=== PATIENT | male | born 1990 | race Caucasian/White ===

== ENCOUNTER 2021-04-18 08:45 | Outpatient (CLI) | payer OTHER, SELFPAY ==
[2021-04-18 09:10] VITALS: BP 145/67; PULSE 68; RESP 20; TEMP 36.9; O2SAT 95
[2021-04-18 09:35] VITALS: BP 124/71; PULSE 73; RESP 20; TEMP 36.3; O2SAT 95
--- NOTE | 2021-04-18 09:41 | XR_ITS ---
PROCEDURE: XR KUB CLINICAL INDICATION: IRON DEFICIENCY,ANEMIA,CROHNS DISEASE Possible foreign body COMPARISON: No exams were available for comparison FINDINGS: Nonspecific bowel gas pattern. There gas-filled loops of colon noted mildly distended in the splenic flexure region. Gas is present in the rectum. SENIOR MAINFRAME PROGRAMMER ANALYST shunt is present with the tip in the right upper quadrant. 13 mm gallstone. No colonic radiopaque foreign body is identified. CT may provide better evaluation if clinically warranted. IMPRESSION: Nonspecific bowel gas pattern without obvious radiopaque foreign body. Cholelithiasis Dictated by: Tony Garcia MD 04/18/2021 10:08 Tony Garcia MD in [place] 04/18/2021 10:08
== END 2021-04-18 09:40 | disposition home or self-care (01) ==
LOC: INF 08:47
PROVIDERS: PCP Internal Medicine; Visit Provider Internal Medicine Gastroenterology
DX: D50.0 Iron deficiency anemia secondary to blood loss (chronic) (principal)
CPT/HCPCS: 74018; 96365; Q0138

== ENCOUNTER 2021-04-21 12:57 | Outpatient (CLI) | payer OTHER, SELFPAY ==
[2021-04-21 13:25] VITALS: BP 120/61; PULSE 65; RESP 17; TEMP 36.3; O2SAT 98
[2021-04-21 14:09] VITALS: BP 122/26; PULSE 68; RESP 17; TEMP 36.4; O2SAT 99
== END 2021-04-21 14:11 | disposition home or self-care (01) ==
LOC: INF 13:00
PROVIDERS: PCP Internal Medicine; Visit Provider Internal Medicine Gastroenterology
DX: D50.0 Iron deficiency anemia secondary to blood loss (chronic) (principal)
CPT/HCPCS: 96365; Q0138

== ENCOUNTER → 2021-05-24 09:48 | Outpatient (CLI) | payer OTHER, SELFPAY | PROVIDERS: Visit Provider Internal Medicine Gastroenterology | DX: Z20.822 Contact with and (suspected) exposure to COVID-19 (principal) | CPT/HCPCS: C9803; U0003; U0005 ==

== ENCOUNTER 2021-05-27 09:39 | Day surgery (SDC) | payer OTHER, SELFPAY ==
[2021-05-20 16:27] VITALS: BMI 29.0
[2021-05-27 10:17] VITALS: BP 127/58; PULSE 64; RESP 18; TEMP 36.4; O2SAT 100
--- NOTE | 2021-05-27 11:31 | HMH.PROC ---
[facility] Procedure Note Procedure Note:: Colonoscopy Procedure Report: Colonoscopy with cold biopsies Endoscopist: Cassius Schroeder II, MD Referring physician: Александр Rucker M.D. Date of Procedure: May 27, 2021 Equipment: Olympus 190 variable stiffness pediatric colonoscope Sedation: MAC sedation Indication: Mr. Roa is a 31-year-old gentleman who was diagnosed with Crohn's disease. He presented with iron deficiency anemia. He had an upper endoscopy and colonoscopy in January 2020. He did have parenteral iron infusions and was given Pentasa 2 capsules by mouth 4 times daily. In 2018, he did have 2 episodes of near syncope and was diagnosed with iron deficiency anemia. He required 4 units of PRBCs. He has remained iron deficient. His C-reactive protein was 8.3. His celiac serologies were negative. His fecal Hemoccult testing was positive. His PillCam/video capsule enteroscopy failed to make it to the colon in the 8-hour study so it was nondiagnostic. His labs from December 2020 revealed ferritin 3, iron saturation 7% and total iron 30 with TIBC 404. His hemoglobin was 12.2. 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 The patient had not been using NSAIDs. Procedure: Prior to the procedure, a history and physical exam was performed, and patient's medications and allergies were reviewed. The risks, benefits and alternatives of the sedation and procedure were discussed with the patient. All questions were answered and informed consent was obtained. The patient was brought to the procedure room. Patient identification and proposed procedure were verified by the physician and the nurse. The patient was placed in a left lateral decubitus position and the scope was passed under direct vision. Throughout the procedure, the patient's blood pressure, pulse, and oxygen saturations were monitored continuously. The colonoscopy was accomplished without difficulty. The patient tolerated the procedure well. Findings: On digital rectal examination there was normal rectal tone. There were no external hemorrhoids. The colonoscope was introduced through the anal canal to the rectum and advanced to the cecum. The ileocecal valve and appendiceal orifice were identified. The ileocecal valve was very deformed in appearance with some mucosal edema at the valve. The scope was advanced approximately 20 cm into the ileum. There was marked aphthous ulceration, erosion and evidence of moderate to marked Crohn's disease of the small intestine (i.e. Crohn's ileitis). There was some penetration but no obvious fistulous. There was some minor stenosis. Multiple biopsies were obtained. The scope was then withdrawn into the colon. The remaining cecum, ascending, transverse, descending, sigmoid and rectum were grossly normal. There was moderate colonic tortuosity/redundancy. There were no other colonic mucosal abnormalities identified. Upon retroflexion within the rectum there were grade 1-2 internal hemorrhoids.The preparation was excellent throughout with [place] Preparation Score of 9. The cecal time was 12 minutes. Impression: 1. Moderate to severe Crohn's disease of the ileum/small intestine (i.e. Crohn's ileitis) 2. Moderate colonic redundancy 3. Grade 1-2 internal hemorrhoids Plan: The patient's iron deficiency anemia is clearly related to moderate to severe Crohn's ileitis. The patient is relatively asymptomatic other than the iron deficiency anemia. He has no diarrhea, abdominal pain or hematochezia. Despite being asymptomatic, the natural history of her disease course would dictate continuous and progressive active disease with the majority of patients requiring surgical intervention. The patient does have greater than 50% probability of surgery within the next 5 to 10 years. Cer
[2021-05-27 11:36] VITALS: BP 100/53; PULSE 75; RESP 18; TEMP 36.2; O2SAT 96
[2021-05-27 11:46] VITALS: BP 102/51; PULSE 55; RESP 18; TEMP 36.2; O2SAT 97
[2021-05-27 11:56] VITALS: BP 98/52; PULSE 49; RESP 18; TEMP 36.2; O2SAT 98
--- NOTE | 2021-05-27 11:56 | HMH.ANESCL ---
[facility] Anesthesia Checklist - Patient Identification Patient Identification: Arm Band - Structural Data Admitted From: Home Planned Operative Procedure/s: COLONOSCOPY Consent for Planned Operative Procedure(s) Verified: Yes Verified Documents: Surgical Consent - NPO Status Verified Time NPO: 04:00 - Chart Verification Results Verified: None - Cardiovascular Assessment Heart Sounds: S1 & S2 Pulse Rhythm: Irregular - Airway Assessment Dentition: Good Dentition - Neurological Assessment Level of Consciousness: Awake, Alert, Appropriate Hx Seizures: No - Anesthesia Plan Anesthesia Risk discussed: Yes ASA Class: II Anesthesia Type: General [facility] History I have reviewed the patient's past medical history: Yes Medical History: Denies:: Cancer, Diabetes Mellitus Type 1, Diabetes Mellitus Type 2, Internal Pacemaker, MRSA, Seizures *Have you ever received a pneumonia vaccine?: No *Have you received a flu vaccine this season?: No Other Medical History: Reports: Anemia Anesthesia experience/problems:: none Other Surgeries: Yes: Other. No: Pacemaker Amputation: No - *Social History Last grade of school completed: High school graduate Smoking Status: Never smoker Alcohol Intake: current Alcohol Intake Frequency:: holidays/special occasions only Substance Use Type: denies use *Occupational Status:: employed Housing: house Household Members: spouse *Travel in the last 8 weeks: None Family Hx:: Unable to obtain
[2021-05-27 12:16] VITALS: BP 111/52; PULSE 61; RESP 18; TEMP 36.2; O2SAT 98
== END 2021-05-27 12:16 | disposition home or self-care (01) ==
LOC: OUTP 09:41
PROVIDERS: PCP Internal Medicine; Visit Provider Internal Medicine Gastroenterology
PROC: 0DJD8ZZ Inspection of Lower Intestinal Tract, Via Natural or Artificial Opening Endoscopic (ICD-10-PCS; CPT 45378; principal; 2021-05-27 11:00)
DX: K50.00 Crohn's disease of small intestine without complications (principal); Q43.8 Other specified congenital malformations of intestine; K64.0 First degree hemorrhoids; D50.9 Iron deficiency anemia, unspecified
CPT/HCPCS: 45380

== ENCOUNTER → 2021-06-13 11:51 | Outpatient (CLI) | payer OTHER, SELFPAY ==
--- NOTE | 2021-06-13 12:34 | XR_ITS ---
PROCEDURE: XR CHEST 2V CLINICAL HISTORY: IRON DEFICIENCY ANEMIA,CROHNS COMPARISON: No exams were available for comparison FINDINGS: The cardiomediastinal silhouette and pulmonary vascularity are within normal limits. The lungs are clear without infiltrates, suspicious nodules, or pleural effusions. A TECHNICAL SUPPORT INTERN shunt traverses the right hemithorax. No acute bony findings IMPRESSION: No acute findings. Dictated by: Tony Garcia MD 06/13/2021 18:02 Tony Garcia MD in [place] 06/13/2021 18:02
[2021-06-13 12:44] LABS: Basophils % 0.4 % (0.1-2.0); Eosinophils # 0.1 K/mm3 (0.0-0.4); Eosinophils % 1.6 % (0.1-12.0); Hematocrit 44.9 % (42.0-52.0); Hemoglobin 14.3 g/dL (14.1-18.0); Lymphocytes # 1.6 K/mm3 (0.7-4.5); Lymphocytes % 24.5 % (10-50); Mean Corpuscular HGB Conc 31.8 g/dL (31.8-35.4); Mean Corpuscular Volume 81.7 fl (80-94); Mean Platelet Volume 9.4 fl (7.4-10.4); Monocytes # 0.5 K/mm3 (0.1-1.0); Monocytes % 7.1 % (1.7-9.3); Neutrophils # 4.4 K/mm3 (1.8-7.8); Neutrophils % 66.5 % (37.0-80.0); Platelet Count 214 K/mm3 (142-424); Red Blood Count 5.49 M/mm3 (4.60-6.20); Red Cell Distribution Width 18.5 % (11.5-17.5); White Blood Count 6.7 K/mm3 (4.8-10.8)
[2021-06-13 13:51] LABS: Chloride 109 mmol/L (98-107); Potassium 3.9 mmoL/L (3.5-5.1); Sodium 141 mmol/L (136-145)
[2021-06-13 13:53] LABS: Alanine Aminotransferase 36 U/L (12-78); Aspartate Amino Transferase 31 U/L (17-59); Blood Urea Nitrogen 14 mg/dl (9-20); Estimated Glomerular Filt Rate 114 ml/min (>60); GFR (African American) 138 ML/MIN (>60)
[2021-06-13 13:54] LABS: Albumin Level 3.5 g/dl (3.5-5.0); Albumin/Globulin Ratio 1.5 (1.1-1.8); Alkaline Phosphatase 93 U/L (38-126); Anion Gap 10.9 mEq/L (5-15); Bilirubin,Total 0.2 mg/dl (0.2-1.3); Calcium 8.7 mg/dl (8.4-10.2); Carbon Dioxide 25 mmol/L (22.0-30.0); Globulin 2.4 g/dL (1.3-3.2); Glucose 95 mg/dl (74-100); Iron 40 ug/dL (49-181); Total Protein,Serum 5.9 g/dl (6.3-8.2)
[2021-06-13 13:58] LABS: C-Reactive Protein 16.7 mg/L (0-4)
[2021-06-13 14:05] LABS: Total Iron Binding Capacity 362 ug/dL (261-462)
[2021-06-13 14:20] LABS: 25-OH Vitamin D, Total 24.8 ng/mL (30-100)
[2021-06-13 14:30] LABS: Ferritin 8.38 ng/ml (17.9-464)
[2021-06-13 14:42] LABS: Vitamin B12 298 pg/mL (239-931)
[2021-06-13 18:09] LABS: Erythrocyte Sedimentation Rate 8 mm/hr (0-15)
[2021-06-15 09:14] LABS: Hepatitis B Core Antibody IgM Negative (Negative); Hepatitis B Surface Antigen Negative (Negative)
[2021-06-16 12:18] LABS: Saccharomyces cerevisiae, IgA <20.0 Units (0.0-24.9); Saccharomyces cerevisiae, IgG 44.4 Units (0.0-24.9)
[2021-06-18 00:08] LABS: QuantiFERON-TB Gold Plus Negative (Negative)
== END ==
PROVIDERS: PCP Internal Medicine; Visit Provider Nurse Practitioner Family
DX: K50.00 Crohn's disease of small intestine without complications (principal); D50.0 Iron deficiency anemia secondary to blood loss (chronic); E55.9 Vitamin D deficiency, unspecified
CPT/HCPCS: 71046; 80053; 82306; 82607; 82728; 83540; 83550; 85025; 85651; 86140; 86256; 86480; 86671; 86704; 87340

== ENCOUNTER → 2021-11-02 08:24 | Outpatient (CLI) | payer OTHER, SELFPAY ==
[2021-11-02 08:57] LABS: Basophils % 1.2 % (0.1-2.0); Eosinophils # 0.1 K/mm3 (0.0-0.4); Eosinophils % 1.3 % (0.1-12.0); Hematocrit 37.6 % (42.0-52.0); Hemoglobin 11.3 g/dL (14.1-18.0); Lymphocytes # 1.2 K/mm3 (0.7-4.5); Lymphocytes % 33.3 % (10-50); Mean Corpuscular HGB Conc 30.1 g/dL (31.8-35.4); Mean Corpuscular Hemoglobin 21.7 pg (27.0-31.2); Mean Corpuscular Volume 72.3 fl (80-94); Mean Platelet Volume 11.2 fl (7.4-10.4); Monocytes # 0.3 K/mm3 (0.1-1.0); Monocytes % 8.7 % (1.7-9.3); Neutrophils # 2.1 K/mm3 (1.8-7.8); Neutrophils % 55.5 % (37.0-80.0); Platelet Count 177 K/mm3 (142-424); Red Cell Distribution Width 16.6 % (11.5-17.5); White Blood Count 3.7 K/mm3 (4.8-10.8)
[2021-11-02 09:19] LABS: Alanine Aminotransferase 41 U/L (12-78); Albumin Level 3.8 g/dl (3.5-5.0); Albumin/Globulin Ratio 1.8 (1.1-1.8); Alkaline Phosphatase 61 U/L (38-126); Anion Gap 8.1 mEq/L (5-15); Aspartate Amino Transferase 46 U/L (17-59); Bilirubin,Total 0.4 mg/dl (0.2-1.3); Blood Urea Nitrogen 15 mg/dl (9-20); Calcium 8.7 mg/dl (8.4-10.2); Carbon Dioxide 29 mmol/L (22.0-30.0); Chloride 109 mmol/L (98-107); Estimated Glomerular Filt Rate 88 ml/min (>60); GFR (African American) 107 ML/MIN (>60); Globulin 2.1 g/dL (1.3-3.2); Glucose 102 mg/dl (74-100); Iron 21 ug/dL (49-181); Potassium 4.1 mmoL/L (3.5-5.1); Sodium 142 mmol/L (136-145); Total Protein,Serum 5.9 g/dl (6.3-8.2)
[2021-11-02 09:25] LABS: C-Reactive Protein 3.3 mg/L (0-4)
[2021-11-02 09:26] LABS: Erythrocyte Sedimentation Rate 14 mm/hr (0-15)
[2021-11-02 09:37] LABS: 25-OH Vitamin D, Total 22.2 ng/mL (30-100)
[2021-11-02 09:55] LABS: Ferritin 4.19 ng/ml (17.9-464)
[2021-11-02 10:11] LABS: Vitamin B12 210 pg/mL (239-931)
[2021-11-02 10:25] LABS: Total Iron Binding Capacity 465 ug/dL (261-462)
== END ==
PROVIDERS: Visit Provider Nurse Practitioner Family
DX: K50.00 Crohn's disease of small intestine without complications (principal); D50.0 Iron deficiency anemia secondary to blood loss (chronic); E55.9 Vitamin D deficiency, unspecified
CPT/HCPCS: 36415; 80053; 82306; 82607; 82728; 83540; 83550; 85025; 85651; 86140